=== PATIENT | female | born 1960 | race Caucasian/White ===

== ENCOUNTER → 2017-08-04 | Outpatient (CLI) | payer OTHER | LOC: BMCIMAGING 11:06 | PROVIDERS: ATTEND Internal Medicine Rheumatology | DX: M18.0 Bilateral primary osteoarthritis of first carpometacarpal joints (principal) ==

== ENCOUNTER → 2018-07-21 | Outpatient (CLI) | payer OTHER | LOC: FIMAGING 08:11 | PROVIDERS: ATTEND Otolaryngology | DX: M26.69 Other specified disorders of temporomandibular joint (principal) ==